=== PATIENT | female | born 1960 | race Caucasian/White ===

== ENCOUNTER 2018-03-21 06:56 | Emergency (ER) | payer OTHER ==
[2018-03-21] MEDS ORDERED: Sucralfate TAB* 1 GM PO ONE (07:29)
[2018-03-21 08:16] LABS: ABS Basophils 0.1 10^3/ul (0-0.2); ABS Eosinophils 0.1 10^3/ul (0-0.6); ABS Lymphocytes 1.7 10^3/ul (1.0-4.8); ABS Monocytes 0.6 10^3/ul (0-0.8); ABS Neutrophils 4.4 10^3/ul (1.5-7.7); ABS Nucleated RBC 0 10^3/ul; Eosinophil % 1.3 % (0-6); Hematocrit 41 % (35-47); Hemoglobin 13.7 g/dl (12.0-16.0); Lymphocyte % 24.7 % (25-47); Mean Corpuscular HGB Conc 33 g/dl (31-36); Mean Corpuscular Hemoglobin 32 pg (27-31); Mean Corpuscular Volume 95 fL (80-97); Mean Platelet Volume 8.1 um3 (7.4-10.4); Nucleated Red Blood Cells % 0.1; Platelet Count 327 10^3/ul (150-450); Red Blood Count 4.31 10^6/ul (4.00-5.40); Red Cell Distribution Width 14 % (10.5-15); White Blood Count 6.8 10^3/ul (3.5-10.8)
[2018-03-21 08:33] LABS: EGFR Non-African American 71.4 (>60)
[2018-03-21 08:44] LABS: Urine Appearance Clear; Urine Blood Negative (Negative); Urine Color Straw; Urine Ketones Negative (Negative); Urine Protein Negative (Negative); Urine Specific Gravity 1.005 (1.010-1.030); Urine Urobilinogen Negative (Negative)
[2018-03-21 09:47] VITALS: BP 117/69
--- NOTE | 2018-03-21 11:49 | ED ---
Ezequiel Robles Angela, scribed for Alfredo Jacob MD on 03/21/18 at 0724 . Abdominal Pain/Female - HPI Summary HPI Summary: This pt is a 57 y/o female presenting to [facility] c/o abd pain for 3 days now. Pt states she has been woken up by her abd pain at 02:30 for the past 3 mornings. She notes her pain is located in the epigastric area and is described as pressure. Pt reports her pain happens throughout the day as well. Additionally she states decreased appetite and nausea. Denies urinary symptoms, constipation , vomiting. Her pain is alleviated with heat. Pt has taken Pepto Bismol without relief. PMHx includes cholecystectomy (4 yrs ago), GERD. She sees Dr. Saba, GI, and the last time was 1 year ago. Pt notes ever since her cholecystectomy she has had intermittent acid reflux and diet change. She states her "acid pain" is on the right side radiating to the center, different from today's pain. Pt takes Pepcid PRN for acid reflux. She has had scopes in the past. - History of Current Complaint Chief Complaint: EDAbdPain Stated Complaint: ABD PAIN Time Seen by Provider: 03/21/18 07:07 Hx Obtained From: Patient Onset/Duration: Lasting Days, Still Present Timing: Days Severity Currently: Moderate Pain Intensity: 5 Pain Scale Used: 0-10 Numeric Location: Epigastric Radiates: No Character: Other: - Pressure Aggravating Factor(s): Food Alleviating Factor(s): Nothing Associated Signs and Symptoms: Positive: Decreased Appetite, Nausea. Negative: Fever, Chest Pain, Constipation, Urinary Symptoms, Vomiting Allergies/Adverse Reactions: Allergies Allergy/AdvReac Type Severity Reaction Status Date / Time No Known Allergies Allergy Verified 03/21/18 07:30 PMH/Surg Hx/FS Hx/Imm Hx Endocrine/Hematology History: Denies: Hx Diabetes, Hx Thyroid Disease Cardiovascular History: Denies: Hx Hypertension Respiratory History: Reports: Hx Seasonal Allergies Denies: Hx Asthma, Hx Chronic Obstructive Pulmonary Disease (COPD) GI History: Reports: Hx Gall Bladder Disease, Hx Gastroesophageal Reflux Disease , Other GI Disorders - GERD Denies: Hx Ulcer History: Reports: Hx Kidney Stones, Hx Renal Disease - kidney stones, Other Problems/Disorders - RENAL CALCULI Musculoskeletal History: Reports: Other Musculoskeletal History - osteoarthritis Sensory History: Reports: Hx Contacts or Glasses Opthamlomology History: Reports: Hx Contacts or Glasses - Cancer History Hx Chemotherapy: No Hx Radiation Therapy: No - Surgical History Surgery Procedure, Year, and Place: cholecystectomy, [facility]. tubal ligation Hx Anesthesia Reactions: No Infectious Disease History: No Infectious Disease History: Denies: Hx Hepatitis, Hx Human Immunodeficiency Virus (HIV), History Other Infectious Disease, Traveled Outside the [place] in Last 30 Days - Family History Known Family History: Positive: Other - cancer Family History: Father (87) and mother (80) are both in good health, per pt. - Social History Alcohol Use: None Substance Use Type: Reports: None Hx Tobacco Use: No Smoking Status (MU): Never Smoked Tobacco Review of Systems Negative: Fever, Chills Eyes: Negative ENT: Negative Positive: Abdominal Pain, Nausea. Negative: Vomiting, Diarrhea, Other - constipation Positive: no symptoms reported, see HPI All Other Systems Reviewed And Are Negative: Yes Physical Exam - Summary Physical Exam Summary: Appearance: The patient is well-nourished in no acute distress and in no acute pain. Skin: The skin is warm and dry and skin color reflects adequate perfusion. HEENT: The head is normocephalic and atraumatic. The pupils are equal and reactive. The conjunctivae are clear and without drainage. Nares are patent and without drainage. Mouth reveals moist mucous membranes and the throat is without erythema and exudate. The external ears are intact. The ear canals are patent and without drainage. The tympanic membranes are intact. Neck: the neck is supple with full range of motion and non-tender. There are no carotid bruits. There is no neck vein distension. Respiratory: Chest is non-tender. Lungs are clear to auscultation and breath sounds are symmetrical and equal. Cardiovascular: Heart is regular rate and rhythm. There is no murmur or rub auscultated. There is no peripheral edema and pulses are symmetrical and equal. Abdomen: The abdomen is soft. Tender in the epigastrium. There are normal bowel sounds heard in all four quadrants and there is no organomegaly palpated. Musculoskeletal: There is no back tenderness noted. Extremities are non-tender with full range of motion. There is good capillary refill. There is no peripheral edema or calf tenderness elicited. Neurological: Patient is alert and oriented to person, place and time. The patient has symmetrical motor strength in all four extremities. Cranial nerves are grossly intact. Deep tendon reflexes are symmetrical and equal in all four extremities. Psychiatric: The patient has an appropriate affect and does not exhibit any anxiety or depression. Triage Information Reviewed: Yes Vital Signs On Initial Exam: Initial Vitals Temp Pulse Resp BP Pulse Ox 97.9 F 86 16 103/63 100 03/21/18 06:57 03/21/18 06:57 03/21/18 06:57 03/21/18 06:57 03/21/18 06:57 Vital Signs Reviewed: Yes Diagnostics - Vital Signs Vital Signs Temp Pulse Resp BP Pulse Ox 03/21/18 07:12 79 19 99 03/21/18 06:57 97.9 F 86 16 103/63 100 - Laboratory Lab Results: Lab Results 03/21/18 03/21/18 03/21/18 Range/Units 07:54 07:54 07:54 WBC 6.8 (3.5-10.8) 10^3/ul RBC 4.31 (4.00-5.40) 10^6/ul Hgb 13.7 (12.0-16.0) g/dl Hct 41 (35-47) % MCV 95 (80-97) fL MCH 32 H (27-31) pg MCHC 33 (31-36) g/dl RDW 14 (10.5-15) % Plt Count 327 (150-450) 10^3/ul MPV 8.1 (7.4-10.4) um3 Neut % (Auto) 65.0 (38-83) % Lymph % (Auto) 24.7 L (25-47) % [place] % (Auto) 8.2 H (0-7) % Eos % (Auto) 1.3 (0-6) % Baso % (Auto) 0.8 (0-2) % Absolute Neuts (auto) 4.4 (1.5-7.7) 10^3/ul Absolute Lymphs (auto) 1.7 (1.0-4.8) 10^3/ul Absolute Monos (auto) 0.6 (0-0.8) 10^3/ul Absolute Eos (auto) 0.1 (0-0.6) 10^3/ul Absolute Basos (auto) 0.1 (0-0.2) 10^3/ul Absolute Nucleated RBC 0 10^3/ul Nucleated RBC % 0.1 Sodium 140 (135-145) mmol/L Potassium 4.2 (3.5-5.0) mmol/L Chloride 105 (101-111) mmol/L Carbon Dioxide 29 (22-32) mmol/L Anion Gap 6 (2-11) mmol/L BUN 12 (6-24) mg/dL Creatinine 0.83 (0.51-0.95) mg/dL Est GFR ( Amer) 86.4 (>60) Est GFR (Non-Af Amer) 71.4 (>60) BUN/Creatinine Ratio 14.5 (8-20) Glucose 96 (70-100) mg/dL Lactic Acid 0.9 (0.5-2.0) mmol/L Calcium 9.7 (8.6-10.3) mg/dL Total Bilirubin 0.50 (0.2-1.0) mg/dL AST 23 (13-39) U/L ALT 17 (7-52) U/L Alkaline Phosphatase 56 (34-104) U/L C-Reactive Protein 3.44 (<8.01) mg/L Total Protein 7.5 (6.4-8.9) g/dL Albumin 4.2 (3.2-5.2) g/dL Globulin 3.3 (2-4) g/dL Albumin/Globulin Ratio 1.3 (1-3) Lipase 24 (11.0-82.0) U/L Urine Color Urine Appearance Urine pH (5-9) Ur Specific Orange (1.010-1.030) Urine Protein (Negative) Urine Ketones (Negative) Urine Blood (Negative) Urine Nitrate (Negative) Urine Bilirubin (Negative) Urine Urobilinogen (Negative) Ur Leukocyte Esterase (Negative) Urine Glucose (Negative) 03/21/18 Range/Units 07:58 WBC (3.5-10.8) 10^3/ul RBC (4.00-5.40) 10^6/ul Hgb (12.0-16.0) g/dl Hct (35-47) % MCV (80-97) fL MCH (27-31) pg MCHC (31-36) g/dl RDW (10.5-15) % Plt Count (150-450) 10^3/ul MPV (7.4-10.4) um3 Neut % (Auto) (38-83) % Lymph % (Auto) (25-47) % [place] % (Auto) (0-7) % Eos % (Auto) (0-6) % Baso % (Auto) (0-2) % Absolute Neuts (auto) (1.5-7.7) 10^3/ul Absolute Lymphs (auto) (1.0-4.8) 10^3/ul Absolute Monos (auto) (0-0.8) 10^3/ul Absolute Eos (auto) (0-0.6) 10^3/ul Absolute Basos (auto) (0-0.2) 10^3/ul Absolute Nucleated RBC 10^3/ul Nucleated RBC % Sodium (135-145) mmol/L Potassium (3.5-5.0) mmol/L Chloride (101-111) mmol/L Carbon Dioxide (22-32) mmol/L Anion Gap (2-11) mmol/L BUN (6-24) mg/dL Creatinine (0.51-0.95) mg/dL Est GFR ( Amer) (>60) Est GFR (Non-Af Amer) (>60) BUN/Creatinine Ratio (8-20) Glucose (70-100) mg/dL Lactic Acid (0.5-2.0) mmol/L Calcium (8.6-10.3) mg/dL Total Bilirubin (0.2-1.0) mg/dL AST (13-39) U/L ALT (7-52) U/L Alkaline Phosphatase (34-104) U/L C-Reactive Protein (<8.01) mg/L Total Protein (6.4-8.9) g/dL Albumin (3.2-5.2) g/dL Globulin (2-4) g/dL Albumin/Globulin Ratio (1-3) Lipase (11.0-82.0) U/L Urine Color Straw Urine Appearance Clear Urine pH 7.0 (5-9) Ur Specific Orange 1.005 L (1.010-1.030) Urine Protein Negative (Negative) Urine Ketones Negative (Negative) Urine Blood Negative (Negative) Urine Nitrate Negative (Negative) Urine Bilirubin Negative (Negative) Urine Urobilinogen Negative (Negative) Ur Leukocyte Esterase Negative (Negative) Urine Glucose Negative (Negative) Result Diagrams: 03/21/18 07:54 03/21/18 07:54 Lab Statement: Any lab studies that have been ordered have been reviewed, and results considered in the medical decision making process. - EKG 07:17 Cardiac Rate: NL - at 75 bpm EKG Rhythm: Sinus Rhythm EKG Interpretation: Normal EKG. Re-Evaluation - Re-Evaluation First Eval Re-Evaluation Time: 09:32 Change: Improved Comment: Her symptoms have improved. She will be discharged home. Abdominal Pain Fem Course/Dx - Course Course Of Treatment: Ms. Painting presented complaining of several days of epigastric pain. She sees Dr. Truong because of continued pain and problems after a cholecystectomy. She states that about a year ago he stopped her Nexium. This is a different kind of pain more epigastric than right upper quadrant. Her labs here were WNL, her vital signs are stable and she improved with sucralfate. I will give her a short course of sucralfate and refer her back to . - Diagnoses Provider Diagnoses: Epigastric pain Discharge - Sign-Out/Discharge Documenting (check all that apply): Discharge/Admit/Transfer - Discharge - Discharge Plan Condition: Stable Disposition: HOME Prescriptions: Sucralfate SUSP 1 gm PO QID ACHS #200 ml Sucralfate TAB* [Carafate*] 1 gm PO QID #40 tab Patient Education Materials: Epigastric Pain (ED) Referrals: Jac Saba MD [Medical Doctor] - Rehan Wick MD [Primary Care Provider] - Additional Instructions: Please follow up with Dr. Saba GI. RETURN TO THE ED FOR ANY WORSENING SYMPTOMS. - Billing Disposition and Condition Condition: STABLE Disposition: Home The documentation as recorded by the Ezequiel moscoso Angela accurately reflects the service I personally performed and the decisions made by me, Alfredo Jacob MD.
== END 2018-03-21 09:46 | disposition home or self-care (01) ==
LOC: ED 06:56
DX: R10.13 Epigastric pain (principal); R11.0 Nausea; R63.0 Anorexia
CPT/HCPCS: 36415; 80053; 81003; 83605; 83690; 85025; 86140; 93005; 99283; A9270-GY

== ENCOUNTER 2019-08-18 02:00 | Emergency (ER) | payer OTHER ==
[2019-08-18] MEDS ORDERED: Ketorolac INJ* 30 MG/ML 1 ML VIAL IV PUSH ONE (02:24)
[2019-08-18] MEDS ORDERED: Ondansetron INJ* 2 MG/ML VIAL IV ONE (02:24)
[2019-08-18] MEDS ORDERED: Morphine 4 MG/ML VIAL (1 ml) 4 MG/ML VIAL IV ONE (02:24)
--- NOTE | 2019-08-18 02:28 | ED ---
Abdominal Pain/Female - HPI Summary HPI Summary: Patient is a 59 y/o F w/ Hx of kidney stones who presents to [facility] with complaints of RLQ pain with radiation to her right lower back. Pain onset at 2330 08/17/19. She notes that her current pain is similar to her previous kidney stones. On triage, pain is rated 8/10. PMHx of GERD, gallbladder disease, osteoarthritis is noted. PSHx of cholecystectomy, tubal ligation. Tobacco, alcohol, and substance usage is denied. Home medications and allergies are reviewed. - History of Current Complaint Chief Complaint: EDAbdPain Stated Complaint: ABD PAIN PER PT Hx Obtained From: Patient Onset/Duration: Lasting Hours, Still Present Timing: Hours Severity Currently: Severe Pain Intensity: 8 Pain Scale Used: 0-10 Numeric Location: Discrete At: RLQ Radiates: Yes Radiates to: Back Associated Signs and Symptoms: Negative: Fever Allergies/Adverse Reactions: Allergies Allergy/AdvReac Type Severity Reaction Status Date / Time No Known Allergies Allergy Verified 08/18/19 02:07 Home Medications: Home Medications Omeprazole 20 mg PO DAILY 08/18/19 [History Confirmed 08/18/19] PMH/Surg Hx/FS Hx/Imm Hx Endocrine/Hematology History: Denies: Hx Diabetes, Hx Thyroid Disease Cardiovascular History: Denies: Hx Hypertension Respiratory History: Reports: Hx Seasonal Allergies Denies: Hx Asthma, Hx Chronic Obstructive Pulmonary Disease (COPD) GI History: Reports: Hx Gall Bladder Disease, Hx Gastroesophageal Reflux Disease , Other GI Disorders - GERD Denies: Hx Ulcer History: Reports: Hx Kidney Stones, Hx Renal Disease - kidney stones, Other Problems/Disorders - RENAL CALCULI Musculoskeletal History: Reports: Other Musculoskeletal History - osteoarthritis Sensory History: Reports: Hx Contacts or Glasses Opthamlomology History: Reports: Hx Contacts or Glasses - Cancer History Hx Chemotherapy: No Hx Radiation Therapy: No - Surgical History Surgery Procedure, Year, and Place: cholecystectomy, [facility] [place]. tubal ligation Hx Anesthesia Reactions: No Infectious Disease History: No Infectious Disease History: Denies: Hx Hepatitis, Hx Human Immunodeficiency Virus (HIV), History Other Infectious Disease, Traveled Outside the [place] in Last 30 Days - Family History Known Family History: Positive: Other - cancer Family History: Father (87) and mother (80) are both in good health, per pt. - Social History Alcohol Use: None Substance Use Type: Reports: None Hx Tobacco Use: No Smoking Status (MU): Never Smoked Tobacco Review of Systems Negative: Fever Positive: Abdominal Pain - with radiation to back All Other Systems Reviewed And Are Negative: Yes Physical Exam - Summary Physical Exam Summary: Appearance: Colicky-appearing, Well-nourished woman who is standing and leaning over stretcher. Skin: Warm, dry, no obvious rash Eyes: sclera anicteric, no conjunctival pallor ENT: mucous membranes moist, pharynx appears normal Neck: Supple, nontender Respiratory: Clear to auscultation, no signs of respiratory distress Cardiovascular: Normal S1, S2. No murmurs. Normal distal pulses in tibial and radial bilaterally. Abdomen: Soft, nontender, normal active bowel sounds present Musculoskeletal: Normal, Strength/ROM Intact Neurological: A&Ox3, awake and alert, mentation is normal, speech is fluent and appropriate Psychiatric: affect is normal, does not appear anxious or depressed Triage Information Reviewed: Yes Vital Signs On Initial Exam: Initial Vitals Temp Pulse Resp BP Pulse Ox 98.4 F 74 15 130/77 96 08/18/19 02:06 08/18/19 02:06 08/18/19 02:06 08/18/19 02:06 08/18/19 02:06 Vital Signs Reviewed: Yes Procedures - Sedation Patient Received Moderate/Deep Sedation with Procedure: No Diagnostics - Vital Signs Vital Signs Temp Pulse Resp BP Pulse Ox 08/18/19 02:06 98.4 F 74 15 130/77 96 - Laboratory Result Diagrams: 08/18/19 02:29 08/18/19 02:29 Lab Statement: Any lab studies that have been ordered have been reviewed, and results considered in the medical decision making process. - CT CT ABD/PEL CT Interpretation Completed By: Radiologist Summary of CT Findings: CT ABD/PEL IMPRESSION: 1. 3 mm distal left ureteral calculus approximately 8 mm above the left UVJ. with mild secondary obstructive uropathy of the right upper tract. 2. Status post cholecystectomy. 3. Colonic diverticulosis without diverticulitis. THIS REPORT WAS REVIEWED BY DR. SHAW Re-Evaluation - Re-Evaluation First Eval Re-Evaluation Time: 03:27 Change: Improved Comment: Pain is improved after medications, patient to receive CT. Second Eval Re-Evaluation Time: 05:16 Comment: Results of workup were discussed with the patient. Patient was discharged to home with prescription for Percocet and Zofran. She was advised to follow up with urology if she does not pass the stone in the next few days. She is agreeable with this plan. Abdominal Pain Fem Course/Dx - Course Course Of Treatment: Patient is a 59 y/o F w/ Hx of kidney stones who presents to [facility] with complaints of RLQ pain with radiation to her right lower back. Pain onset at 2330 08/17/19. She notes that her current pain is similar to her previous kidney stones. Patient is colicky in appearance and standing and leaning over stretcher. Bloodwork was obtained and within normal limits with exception of MCH 32, potassium 3.3, glucose 138. During ED course, patient received Zofran 8 mg IV, morphine 4 mg IV, and toradol [address] ABD/PEL IMPRESSION: 1. 3 mm distal left ureteral calculus approximately 8 mm above the left UVJ. with mild secondary obstructive uropathy of the right upper tract. 2. Status post cholecystectomy. 3. Colonic diverticulosis without diverticulitis. Results of workup were discussed with the patient. Patient was discharged to home with prescription for Percocet and Zofran. She was advised to follow up with urology if she does not pass the stone in the next few days. She is agreeable with this plan. - Diagnoses Provider Diagnoses: Kidney stone Discharge ED - Sign-Out/Discharge Documenting (check all that apply): Patient Departure - discharge - Discharge Plan Condition: Stable Disposition: HOME Prescriptions: Ondansetron ODT TAB* [Zofran 4 MG Odt TAB*] 8 mg PO Q6H PRN #15 tab.odt PRN Reason: Nausea oxyCODONE/Acetamin 5/325 MG* [Percocet 5/325 TAB*] 1 tab PO Q4H PRN #15 tab MDD 6 PRN Reason: Pain - Severe Patient Education Materials: Renal Colic (ED) Referrals: Rehan Wick MD [Primary Care Provider] - Timmy Jacobs MD [Medical Doctor] - Additional Instructions: If you have not passed the stone by Monday contact the urology office for followup. The stone is small, only 3 mm, and just a few inches from passing into the bladder, so chances are good it will pass on its own. I have prescribed some opioid pain medication and anti-emetics to help manage the symptoms in the meantime. I recommend taking 2 alleve tablets twice a day as a baseline for the pain, and supplement with with the prescription opioid as needed. Occasionally people find it impossible to manage their symptoms at home. If that happens, come back and we will help. - Attestation Statements Document Initiated by Tusharibe: Yes Documenting Scribe: RIGOBERTO GUERRA Provider For Whom Reji is Documenting (Include Credential): MARCOS SHAW MD Scribe Attestation: I, RIGOBERTO GUERRA, scribed for MARCOS SHAW MD on 08/18/19 at 0516. Status of Scribe Document: Ready
[2019-08-18 02:34] LABS: ABS Eosinophils 0.1 10^3/ul (0-0.6); ABS Lymphocytes 2.1 10^3/ul (1.0-4.8); ABS Monocytes 0.8 10^3/ul (0-0.8); ABS Neutrophils 5.1 10^3/ul (1.5-7.7); Eosinophil % 1.6 %; Hematocrit 38 % (35-47); Hemoglobin 12.7 g/dL (12.0-16.0); Lymphocyte % 25.5 %; Mean Corpuscular HGB Conc 33 g/dL (31-36); Mean Corpuscular Hemoglobin 32 pg (27-31); Mean Corpuscular Volume 95 fL (80-97); Mean Platelet Volume 7.7 fL (7.4-10.4); Nucleated Red Blood Cells % 0.1; Platelet Count 298 10^3/uL (150-450); Red Blood Count 4.01 10^6 /uL (3.70-4.87); Red Cell Distribution Width 14 % (10-15); White Blood Count 8.1 10^3/uL (3.5-10.8)
[2019-08-18 02:52] LABS: Albumin/Globulin Ratio 1.4 (1-3); BUN/Creatinine Ratio 18.7 (8-20); Calcium 9.5 mg/dL (8.6-10.3); EGFR African American 77.1 (>60); EGFR Non-African American 63.7 (>60); Globulin 2.9 g/dL (2-4); Potassium 3.3 mmol/L (3.5-5.0); Total Bilirubin 0.4 mg/dL (0.2-1.0); Total Protein 6.9 g/dL (6.4-8.9)
[2019-08-18] MEDS ORDERED: Ondansetron TAB* 4 MG PO ONE (05:27)
[2019-08-18 05:30] VITALS: BP 117/52
== END 2019-08-18 05:01 | disposition home or self-care (01) ==
LOC: ED 02:00
DX: N20.1 Calculus of ureter (principal); Z87.442 Personal history of urinary calculi; N13.9 Obstructive and reflux uropathy, unspecified; K57.30 Diverticulosis of large intestine without perforation or abscess without bleeding; K21.9 Gastro-esophageal reflux disease without esophagitis; Z90.49 Acquired absence of other specified parts of digestive tract
CPT/HCPCS: 36415; 74176; 80053; 85025; 96374; 96375; 99283; A9270-GY; J1885; J2270; J2405

== ENCOUNTER 2019-08-23 07:52 | Day surgery (SDC) | payer OTHER ==
--- NOTE | 2019-08-21 18:23 | HP ---
CC: Dr. Rehan Wick * ADMITTING HISTORY AND PHYSICAL: DATE OF ADMISSION: 08/23/19 ADMITTING DIAGNOSES: 1. Right hydronephrosis. 2. Calculus right ureter. PLANNED PROCEDURE: Right ureteroscopy, possible laser and stent insertion. SURGEON: Dr. Conway. HISTORY OF PRESENT ILLNESS: Breanna Painting is a 59-year-old lady who started having right flank pain and nausea about 4 to 5 days ago. She was initially evaluated in the emergency room where the CT scan revealed 3 to 4 mm calculus in the distal right ureter with right hydronephrosis. She continues to have pain and also had a low-grade fever on the night of 08/20/19 and when seen in my office on 08/21/19 had almost complete obstruction of the right ureter with persistent right hydronephrosis. She was given the option of trying to continue conservative management, but is frustrated and would like to proceed with endoscopic treatment of the calculus at this point. PAST MEDICAL HISTORY: Significant for gastroesophageal reflux and a history of renal calculi. PAST SURGICAL HISTORY: Significant for cholecystectomy. MEDICATIONS: Prilosec 1 tablet daily. ALLERGIES: No known drug allergies. FAMILY HISTORY: Negative for stones. SOCIAL HISTORY: Smoking history: She is a nonsmoker. REVIEW OF SYSTEMS: She is otherwise in excellent health. There is no history of diabetes mellitus or any other major systemic illness. She denies any chest pain or shortness of breath. PHYSICAL EXAMINATION GENERAL: Reveals a pleasant, middle-aged lady. VITAL SIGNS: Blood pressure is 124/80, pulse 76 per minute regular, temperature 97.8, oxygen saturation 95% on room air. LUNGS: Clear bilaterally. CARDIOVASCULAR EXAM: Regular rate and rhythm. S1, S2. ABDOMEN: Soft with right flank tenderness. IMPRESSION: A 59-year-old lady with calculus in the right distal ureter causing right flank pain and right hydronephrosis. PLAN: Planned procedure is right ureteroscopy, possible laser and stent insertion. [id number]/[facility] #: [id number] MTDD
[~2019-08-23 07:52] MED LIST: Buffered Lidocaine 1% SYRIN* 1 ML/SYRINGE INTRADERM ONE; Lactated Ringers 1000 ML Bag* 1,000 ML IV SCH
[2019-08-23] MEDS ORDERED: Buffered Lidocaine 1% SYRIN* 1 ML/SYRINGE INTRADERM ONE (08:57)
[2019-08-23] MEDS ORDERED: cefTRIAXone(*) 2 GM ADDV.VIAL IVPB ONE (08:57)
[2019-08-23] MEDS ORDERED: Iohexol 180 (CONTRAST) 10 ML SDV IV ONE (09:41)
[2019-08-23] MEDS ORDERED: Ondansetron INJ* 2 MG/ML VIAL IV PRN (09:45)
[2019-08-23] MEDS ORDERED: fentaNYL* 50 MCG/ML 2 ML VIAL (100 MCG VIAL) IV PRN (09:45)
[2019-08-23] MEDS ORDERED: Naloxone* 0.4 MG/ML 1 ML VIAL IV PRN (09:45)
[2019-08-23] MEDS ORDERED: Acetaminophen IV 1GM/100ML * 1,000 MG/100 ML VIAL IVPB ONE (09:45)
[2019-08-23] MEDS ORDERED: fentaNYL* 50 MCG/ML 2 ML VIAL (100 MCG VIAL) ONE (09:50)
[2019-08-23] MEDS ORDERED: Midazolam* 1 MG/ML 2 ML VIAL (2 MG) ONE (09:51)
[2019-08-23] MEDS ORDERED: Propofol* 10 MG/ML 20 ML BTL ONE (10:30)
[2019-08-23] MEDS ORDERED: Ketorolac INJ* 30 MG/ML 1 ML VIAL ONE (10:30)
[2019-08-23] MEDS ORDERED: Dexamethasone IV* 4 MG/ML 1 ML (4 MG) ONE (10:30)
[2019-08-23] MEDS ORDERED: Lidocaine 2% PF * 5 ML VIAL ONE (10:31)
[2019-08-23 11:14] VITALS: BP 109/85
--- NOTE | 2019-08-23 16:48 | OP ---
CC: Dr. Rhean Wick; Dr. Conway OPERATIVE REPORT: DATE OF OPERATION: 08/23/19 DATE OF : 64 SURGEON: Kevan Conway MD ANESTHESIOLOGIST: Dr. Johnson. ANESTHESIA: General. PRE-OP DIAGNOSES: 1. Calculus, right ureter. 2. Right hydronephrosis. POST-OP DIAGNOSES: 1. Calculus, right ureter. 2. Right hydronephrosis. OPERATIVE PROCEDURE: Cystoscopy, right retrograde pyelogram, right ureteroscopy, and stone extractio n and right stent insertion. COMPLICATIONS: None. STENT USED: A 6-Spanish stent, right ureter. OPERATIVE FINDINGS: Approximately 4 mm calculus impacted in right distal ureter with surrounding yamilet ma and inflammation. POSTOPERATIVE CONDITION: Stable. INDICATIONS: Breanna Painting is a 59-year-old lady who was noted to have persistent right flank pain se condary to a calculus in the right ureter and she desires treatment of the same. DESCRIPTION OF PROCEDURE: After induction of general anesthesia, the patient was placed in dorsal li thotomy position. Sequential compression devices were in place and functioning. Initial cystoscopy revealed a fairly stenotic ureteral orifices bilaterally. The remainder of the bladder was unremarka ble. A guidewire was introduced into the right ureter. Retrograde pyelogram revealed mild fullness of the right collecting system. A 6-Spanish semirigid ureteroscope was introduced and advanced under direct vision. Just above the ureterovesical junction, approximately 4 to 5 mm calculus was noted to be impacted with surrounding edema and inflammation. This was carefully engaged with 3-pronged gras per and removed and sent for analysis. No additional calculi were noted. A 6-Spanish stent was intro duced and positioned under fluoroscopy with good proximal and distal positioning obtained. The bladd er was emptied. The patient tolerated the procedure satisfactorily and was transferred back to the [facility] area in stable condition. [id number]/[facility] #: [id number]
== END 2019-08-23 12:00 | disposition home or self-care (01) ==
LOC: OR 07:52
PROVIDERS: ATTEND Urology
DX: N13.2 Hydronephrosis with renal and ureteral calculous obstruction (principal); K21.9 Gastro-esophageal reflux disease without esophagitis; Z87.442 Personal history of urinary calculi
CPT/HCPCS: 74420; 82365; 88300; C1876; J0696; J1100; J1885; J2250; J2704; J3010